=== PATIENT | female | born 1990 | race Caucasian/White ===

== ENCOUNTER 2018-08-07 17:39 | Emergency (ER) | payer SELFPAY ==
--- NOTE | 2018-08-07 18:02 | ED Physician Documentation ---
Abdominal Pain - HISTORIAN Historian: patient - HPI Stated Complaint: abdominal pain sinced 4 pm Chief Complaint: Abdominal Pain Onset: hours (2) Duration: constant Timing: better Context: denies: out of country travel, bad food, recent trauma Severity: moderate Quality: pain, aching, sharp, stabbing Associated Symptoms: none Exacerbated by: nothing Relieved by: nothing Further Comments: yes (She states about 4 pm she started to have abdominal pain. Left sided (normal bowel movement today) She states the pain was sharp, aching, stabbing and on and off. She reports currently since the IV was started her pain has improved. She denies any injury. Denies any blood in urine. She is sexually active. No vaginal discharge. No sexual incoutners in 2 months.) - ROS CONST: no problems GI/: none CVS/RESP: none MS/SKIN/LYMPH: none NEURO/PSYCH: none - SOCIAL HX Smoking History: cigarettes Alcohol Use: none Drug Use: none - FAMILY HX Family History: none - PAST HX Past History: none Other History: none Surgeries/Procedures: none Immunizations: UTD - REVIEWED ASSESSMENTS Nursing Assessment Reviewed: Yes Vitals Reviewed: Yes <Sissy Spann - Last Filed: 08/07/18 18:40> <Uma Dean - Last Filed: 08/07/18 20:05> - PAST HX Home Medications: Ambulatory Orders Medication Instructions Recorded NK 08/07/18 Allergies/Adverse Reactions: Allergies Allergy/AdvReac Type Severity Reaction Status Date / Time Penicillins Allergy Intermediate Hives Verified 01/17/14 14:37 - VITAL SIGNS Vital Signs: Vital Signs Temp Pulse Resp BP Pulse Ox 97.8 F 70 20 112/62 100 08/07/18 17:40 08/07/18 17:40 08/07/18 17:40 08/07/18 17:40 08/07/18 17:40 Progress <Uma Dean - Last Filed: 08/07/18 20:05> - Progress Progress: 20:00 Patient in room laughing- feeling much better- discussed results of CT- increase fiber, drink plenty of water. (Uma Dean) ED Results Lab/Radiology <Uma Dean - Last Filed: 08/07/18 20:05> - Lab Results Lab Results: Lab Results 08/07/18 08/07/18 08/07/18 18:03 18:03 18:03 WBC 7.90 K/ul K/ul (4.00-12.00) RBC 4.35 M/ul M/ul (3.90-5.20) Hgb 13.6 g/dL g/dL (11.5-16.0) Hct 40.8 % % (34.5-46.5) MCV 94.0 fl fl (80.0-100.0) MCH 31.3 pg pg (28.0-34.0) MCHC 33.4 g/dL g/dL (30.0-36.0) RDW 11.9 % % (11.3-14.3) Plt Count 257 K/mm3 K/mm3 (130-400) Neut % (Auto) 53.0 % % (39.0-79.0) Lymph % (Auto) 39.0 % % (16.0-50.0) Dawson % (Auto) 4.2 % % (0.0-11.0) Eos % (Auto) 3.3 % % (0.0-6.8) Baso % (Auto) 0.5 % % (0.0-1.5) Neut # (Auto) 4.2 # k/uL # k/uL (1.4-7.7) Lymph # (Auto) 3.1 # k/uL # k/uL (0.6-4.0) Dawson # (Auto) 0.3 # k/uL # k/uL (0.0-0.9) Eos # (Auto) 0.3 # k/uL # k/uL (0.0-0.6) Baso # (Auto) 0.0 # k/uL # k/uL (0.0-0.5) Sodium 140 mmol/L mmol/L (137-145) Potassium 3.9 mmol/L mmol/L (3.5-5.1) Chloride 106 mmol/L mmol/L (98-107) Carbon Dioxide 25 mmol/L mmol/L (22-30) BUN 16 mg/dL mg/dL (7-17) Creatinine 0.86 mg/dL mg/dL (0.52-1.04) Estimated Creat Clear 94 Est GFR ( Amer) > 60 (60 - ) Est GFR (Non-Af Amer) > 60 (60 - ) Glucose 86 mg/dL mg/dL (74-106) Calcium 9.4 mg/dL mg/dL (8.4-10.2) Total Bilirubin 0.2 mg/dL mg/dL (0.2-1.3) AST 29 U/L U/L (15-46) ALT 13 U/L U/L (13-69) Alkaline Phosphatase 64 U/L U/L (38-126) Total Protein 7.4 g/dL g/dL (6.3-8.2) Albumin 4.3 g/dL g/dL (3.5-5.0) Serum HCG, Qual Negative (NEGATIVE) - Radiology Radiology Impressions: CT abdomen and pelvis with intravenous contrast History: Abdominal pain Technique: Images through the abdomen and pelvis were obtained following intravenous contrast administration. Findings: The lung bases, liver, gallbladder, spleen, pancreas, kidneys and adrenal glands are normal. There is no hydronephrosis, hydroureter, free intraperitoneal air or fluid. There is no bowel obstruction. The appendix is not identified with confidence. The uterus is grossly normal. Intrauterine contraceptive device is present. Impression: Normal. (Uma Dean) - Orders Orders: ED Orders Category Date Time Status IV Started NOW Care 08/07/18 18:[address] ABD & PELVIS W/ CON Stat Exams 08/07/18 Taken CBC/PLATELET/DIFF Stat Lab 08/07/18 18:03 Completed CMP Stat Lab 08/07/18 18:03 Completed SERUM HCG Stat Lab 08/07/18 18:03 Completed URINE HCG Stat Lab 08/07/18 18:03 Ordered Abdominal Pain Physical Exam - Physical Exam General Appearance: alert, mild distress EENT: eye inspection normal, no signs of dehydration NECK: normal inspection RESPIRATORY: no resp distress, chest non-tender, breath sounds normal CVS: reg rate & rhythm, heart sounds normal, no murmur ABDOMEN: soft, normal bowel sounds, no distension, non-tender BACK: normal inspection, no CVA tenderness SKIN: warm/dry, normal color EXTREMITIES: non-tender, normal range of motion, no evidence of injury, no edema NEURO: oriented X3 <Sissy Spann - Last Filed: 08/07/18 18:40> - Physical Exam Vital Signs: Vital Signs Temp Pulse Resp BP Pulse Ox 97.8 F 70 20 112/62 100 08/07/18 17:40 08/07/18 17:40 08/07/18 17:40 08/07/18 17:40 08/07/18 17:40 Discharge <Sissy Spann - Last Filed: 08/07/18 18:40> Decision to Admit: NO Decision Time: 20:02 <Uma Dean - Last Filed: 08/07/18 20:05> Clincal Impression: Constipation Referrals: Primary Doctor,No [Primary Care Provider] - 2 Days Additional Instructions: Increase water intake Try the "3 day Cleanse" at [employer] in the laxative aisle- does not cause cramping Increase Fiber in Diet Follow up with PCP as needed Condition: Good Disposition: 01 HOME, SELF-CARE
[2018-08-07 18:11] LABS: BASOPHILS % 0.5 % (0.0-1.5); NEUTROPHILS # 4.2 # k/uL (1.4-7.7)
[2018-08-07 18:23] LABS: eGFR (Non-African) > 60
--- NOTE | 2018-08-07 20:27 | Diagnostic Imaging Report ---
MENG THORNTON [facility] [address] [facility] [address] [place], [place]. [address] Report Submission Date: Aug 07, 2018 7:50:41 PM CDT Patient Study Name: SALVATORE SARMIENTO Date: Aug 07, 2018 7:08:01 PM CDT Modality Type: CT\SR Gender: F Description: CT A/P W/ CONTRAST : 89 Institution: [facility] Physician: MENG THORNTON CT abdomen and pelvis with intravenous contrast History: Abdominal pain Technique: Images through the abdomen and pelvis were obtained following intravenous contrast administration. Findings: The lung bases, liver, gallbladder, spleen, pancreas, kidneys and adrenal glands are normal. There is no hydronephrosis, hydroureter, free intraperitoneal air or fluid. There is no bowel obstruction. The appendix is not identified with confidence. The uterus is grossly normal. Intrauterine contraceptive device is present. Impression: Normal. Electronically signed on Aug 07, 2018 7:50:41 PM CDT by: Paco BENITEZ
[2018-08-07 20:54] VITALS: BP 122/69
== END 2018-08-07 20:10 | disposition home or self-care (01) ==
LOC: ED 17:39
DX: K59.00 Constipation, unspecified (principal)
CPT/HCPCS: 74177; 80053; 84703; 85025; 99282; Q9967; S1016

== ENCOUNTER 2018-10-02 07:42 | Emergency (ER) | payer SELFPAY ==
[2018-10-02 08:00] VITALS: BP 119/77
--- NOTE | 2018-10-02 08:06 | ED Physician Documentation ---
Upper Respiratory Symptoms - HISTORIAN Historian: patient - HPI Stated Complaint: Cough Chief Complaint: Cough/ Upper Respiratory Additional Information: Patient presents to ED with a 2 day history of cough, nasal congestion and sore throat. Denies fever, chills, or shortness of breath. Onset: days ago (2) Duration: intermittent episodes Context: denies: recent foreign travel Severity: mild Associated Symptoms: runny nose, sore throat, other (dry cough). denies: fever, chills - ROS CONST/EYES: denies: weakness CVS/RESP: denies: shortness of breath LYMPH: denies: rash GI/: denies: vomiting, nausea NEURO/PSYCH: denies: dizziness MS/SKIN: denies: muscle aches - PAST HX Lung Disease: none PE Risk Factors: none Surgeries/Procedures: none Allergies/Adverse Reactions: Allergies Allergy/AdvReac Type Severity Reaction Status Date / Time Penicillins Allergy Intermediate Hives Verified 10/02/18 08:00 Home Medications: Ambulatory Orders Medication Instructions Recorded NK 08/07/18 - SOCIAL HX Smoking History: cigarettes, greater than 1 pack/day Alcohol Use: none Drug Use: none - FAMILY HX Family History: none - VITAL SIGNS Vital Signs: Vital Signs Temp Pulse Resp BP Pulse Ox 98.4 F 93 H 17 119/77 100 10/02/18 07:45 10/02/18 07:45 10/02/18 07:45 10/02/18 07:45 10/02/18 07:45 - REVIEWED ASSESSMENTS Nursing Assessment Reviewed: Yes Vitals Reviewed: Yes Upper Respiratory Symptoms - EXAM General Appearance: no acute distress, alert EENT: eyes nml inspection, rhinorrhea, pharynx nml Neck: No: lymphadenopathy Respiratory: no resp. distress, breath sounds nml Abdomen: non-tender, nml bowel sounds CVS: reg rate & rhythm, heart sounds normal Skin: color nml, no rash, warm,dry Extremities: non-tender Neuro/Psych: oriented x3, neuro intact, mood/affect nml Discharge Clincal Impression: Viral upper respiratory illness Referrals: Primary Doctor,No [Primary Care Provider] - 2 Days Additional Instructions: 1. Tylenol and/or Ibuprofen as needed for pain/fever 2. Drink plenty of fluids 3. Add daily antihistamine 4. Follow up with PCP within 1 week 5. Return to ER for new or worsening symptoms Condition: Stable Disposition: 01 HOME, SELF-CARE Decision to Admit: NO Date of Decison to Admit: 10/02/18 Decision Time: 08:06
== END 2018-10-02 08:16 | disposition home or self-care (01) ==
LOC: ED 07:42
DX: J06.9 Acute upper respiratory infection, unspecified (principal)
CPT/HCPCS: 99281; 99284

== ENCOUNTER 2018-10-12 19:10 | Emergency (ER) | payer SELFPAY ==
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
[2018-10-12] MEDS: LORazepam 2 MG/ML VIAL IV ONE (19:25)
[2018-10-12 19:50] LABS: BASOPHILS % 0.9 % (0.0-1.5); NEUTROPHILS # 5.5 # k/uL (1.4-7.7)
[2018-10-12 20:00] LABS: eGFR (Non-African) > 60
[2018-10-12] MEDS: 0.9 % SODIUM CHLORIDE 1,000 ML IV ONE (21:30)
[2018-10-12 22:33] VITALS: BP 116/67
[2018-10-13 08:40] LABS: APPEARANCE,URINE CLEAR (CLEAR); COLOR,URINE YELLOW (YELLOW); OCCULT BLOOD,URINE NEGATIVE (NEGATIVE); PH URINE 7.5 (5.0 - 8.0)
[2018-10-13 08:41] LABS: CANNABINOIDS NON NEGATIVE ng/mL (< 50); METHYLENEDIOXYMETHAMPHETAMINE NEGATIVE ng/mL (<500)
== END 2018-10-12 22:10 | disposition home or self-care (01) ==
LOC: ED 19:10
DX: F41.9 Anxiety disorder, unspecified (principal); E16.2 Hypoglycemia, unspecified; Y04.8XXA Assault by other bodily force, initial encounter; Y99.0 Civilian activity done for income or pay
CPT/HCPCS: 80053; 80377; 81002; 85025; 96361; 96374; 99284; J2060; J7030; G0481; S1016